=== PATIENT | male | born 2000 | race African-American/Black ===

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

== ENCOUNTER 2021-07-03 14:43 | Emergency (ER) | payer OTHER ==
[2021-07-03 14:57] VITALS: BP 133/81; PULSE 70; TEMP 98.7; BMI 49.4
== END 2021-07-03 15:36 | disposition home or self-care (01) ==
LOC: JERFT 14:43
DX: S93.402A Sprain of unspecified ligament of left ankle, initial encounter (principal); W01.0XXA Fall on same level from slipping, tripping and stumbling without subsequent striking against object, initial encounter; Y92.9 Unspecified place or not applicable
CPT/HCPCS: 73610-TC-LT-FY; 73630-TC-LT; 99284-25